=== PATIENT | female | born 1950 | race Caucasian/White ===

== ENCOUNTER 2018-02-22 08:17 | Day surgery (SDC) | payer MEDICARE ==
[~2018-02-22 08:17] MED LIST: ASPI81CH PO; AZIT250 PO; DOCU100 PO; LISI5 PO; LORA1SY PO; Tambocor100 MG PO; ZOLP10 PO
== END 2018-02-22 22:44 ==
LOC: MOI MAM 08:17
PROC: BH40ZZZ Ultrasonography of Right Breast (ICD-10-PCS; principal; 2018-02-22)
DX: C50.412 Malignant neoplasm of upper-outer quadrant of left female breast (principal)
CPT/HCPCS: 19285; 19286; 77065; A4648

== ENCOUNTER 2018-08-21 23:50 | Emergency (ER) | payer MEDICARE ==
[~2018-08-21] VITALS: Ht 165.1 cm; Wt 81.7 kg
[2018-08-22 00:23] LABS: Source, Urine Clean Catch
[2018-08-22 00:25] LABS: Bilirubin, Urine Neg (Neg); Blood, Urine 5+ (Neg); Glucose Qualitative, Urine Neg (Neg); Ketones, Urine 1+ (Neg); Leukocyte Esterase, Urine 2+ (Neg); Nitrite, Urine Pos (Neg); Protein, Urine 3+ (Neg); Specific Gravity, Urine 1.025 (1.003-1.022); Urobilinogen, Urine NORM (Normal)
[2018-08-22 00:27] LABS: Color, Urine Yellow (P-Yellow)
[2018-08-22 00:28] LABS: Appearance, Urine Hazy (Clear)
[2018-08-22 00:39] LABS: Bacteria Many /hpf; Red Blood Cells, Urine TNTC /hpf (0-2); Squamous Epithelial Cells Not Seen /hpf (Few)
[2018-08-22] MEDS ORDERED: Flomax0.4 MG PO (01:56)
[2018-08-22] MEDS ORDERED: Norco 5-325 Ta1 EACH PO (01:56)
[2018-08-22] MEDS ORDERED: Zofran4 MG PO (01:56)
== END 2018-08-22 02:19 | disposition home or self-care (01) ==
LOC: ER 23:50
PROVIDERS: Emergency Medicine
DX: N13.2 Hydronephrosis with renal and ureteral calculous obstruction (principal); I10 Essential (primary) hypertension; Z88.5 Allergy status to narcotic agent; Z88.8 Allergy status to other drugs, medicaments and biological substances; Z91.041 Radiographic dye allergy status; Z86.711 Personal history of pulmonary embolism; Z79.899 Other long term (current) drug therapy; Z79.82 Long term (current) use of aspirin; Z86.718 Personal history of other venous thrombosis and embolism; Z87.891 Personal history of nicotine dependence
CPT/HCPCS: 74176; 81001; 87077; 87086; 87186; 96374; 96375; 99284-25; J2405; J3010

== ENCOUNTER 2018-08-25 04:50 | Inpatient (IN) | payer MEDICARE ==
[~2018-08-25] VITALS: Ht 165.1 cm; Wt 81.9 kg
[~2018-08-25 04:50] MED LIST changes: +Flomax0.4 MG PO; +Norco 5-325 Ta1 EACH PO; +Zofran4 MG PO
[2018-08-25 05:42] LABS: Hematocrit 39.9 % (33.0-51.0); Hemoglobin 13.9 g/dL (11.5-16.0); Mean Corpuscular HGB 32.6 pg (26.0-34.0); Mean Corpuscular HGB Conc 34.8 g/dL (31.5-36.5); Mean Corpuscular Volume 94 fL (80-100); Mean Platelet Volume 11.9 fL (9.1-12.4); Platelet Count 127 K/mm3 (150-400); RDW Coefficient Variation 13.6 % (11.7-14.2); Red Blood Cell Count 4.26 M/mm3 (3.80-5.20); White Blood Cell Count 22.99 K/mm3 (4.00-11.30)
[2018-08-25 05:47] LABS: Source, Urine Catheter
[2018-08-25 05:49] LABS: Bilirubin, Urine Neg (Neg); Blood, Urine 5+ (Neg); Glucose Qualitative, Urine Neg (Neg); Ketones, Urine 2+ (Neg); Leukocyte Esterase, Urine 3+ (Neg); Nitrite, Urine Pos (Neg); Protein, Urine 3+ (Neg); Urobilinogen, Urine 1+ (Normal)
[2018-08-25 06:01] LABS: Alanine Aminotransfer (ALT/SGP 135 U/L (12-78); Albumin, Blood 2.8 g/dL (3.4-5.0); Albumin/Globulin Ratio 0.6 (0.8-1.8); Alk Phos 351 U/L (50-136); Anion Gap 16 mmol/L (6-16); Aspartate Aminotrans (AST/SGOT 61 U/L (12-37); Bilirubin, Total 0.9 mg/dL (0.1-1.0); Blood Urea Nitrogen 48 mg/dL (8-24); CO2, Blood 16 mmol/L (21-32); Calcium, Blood 7.7 mg/dL (8.5-10.1); Chloride, Blood 104 mmol/L (98-108); Globulin, Blood 4.7 g/dL (2.2-4.0); Glomerular Filtration Rate 26 (60-); Glucose, Blood 121 mg/dL (70-99); Potassium, Blood 3.6 mmol/L (3.5-5.5); Sodium, Blood 136 mmol/L (136-145); Total Protein, Blood 7.5 g/dL (6.4-8.2); Troponin I <0.015 ng/mL (0.000-0.040)
[2018-08-25 06:15] LABS: Appearance, Urine Cloudy (Clear); Color, Urine Yellow (P-Yellow)
[2018-08-25 06:22] LABS: Red Blood Cells, Urine 25-50 /hpf (0-2); White Blood Cells, Urine 50-100 /hpf (0-5)
[2018-08-25 06:23] LABS: Bacteria Many /hpf; Squamous Epithelial Cells Mod /hpf (Few)
[2018-08-25 06:40] LABS: BAND PERCENT MAN 6 % (0-8); BASOPHILS PERCENT MAN 0 % (0-2); EOSINOPHILS PERCENT MAN 0 % (0-6); LYMPHOCYTES ABSOLUTE MAN 0.45 K/mm3 (0.84-5.20); LYMPHOCYTES PERCENT MAN 2 % (21-46); METAMYELOCYTE ABSOLUTE MAN 0.22 K/mm3 (0.00-0.00); METAMYELOCYTE PERCENT MAN 1 % (0-0); MONOCYTES ABSOLUTE MAN 0.22 K/mm3 (0.16-1.47); MONOCYTES PERCENT MAN 1 % (4-13); NEUTROPHILS ABSOLUTE MAN 22.07 K/mm3 (1.96-9.15); SEG NEUTROPHILS PERCENT MAN 90 % (41-73); TOTAL CELLS COUNTED 100
[2018-08-26 05:11] LABS: BASOPHILS ABSOLUTE AUTO 0.03 K/mm3 (0.00-0.23); BASOPHILS PERCENT AUTO 0 % (0-2); EOSINOPHILS ABSOLUTE AUTO 0.01 K/mm3 (0.00-0.68); EOSINOPHILS PERCENT AUTO 0 % (0-6); Hematocrit 31.7 % (33.0-51.0); Hemoglobin 10.5 g/dL (11.5-16.0); IMMATURE GRAN ABSOLUTE AUTO 0.05 K/mm3 (0.00-0.10); IMMATURE GRAN PERCENT AUTO 0 % (0-1); LYMPHOCYTES ABSOLUTE AUTO 0.61 K/mm3 (0.84-5.20); LYMPHOCYTES PERCENT AUTO 5 % (21-46); MONOCYTES ABSOLUTE AUTO 0.72 K/mm3 (0.16-1.47); MONOCYTES PERCENT AUTO 6 % (4-13); Mean Corpuscular HGB 31.7 pg (26.0-34.0); Mean Corpuscular HGB Conc 33.1 g/dL (31.5-36.5); Mean Corpuscular Volume 96 fL (80-100); Mean Platelet Volume 12.2 fL (9.1-12.4); NEUTROPHILS ABSOLUTE AUTO 10.37 K/mm3 (1.96-9.15); NEUTROPHILS PERCENT AUTO 88 % (41-73); Platelet Count 103 K/mm3 (150-400); RDW Coefficient Variation 14.1 % (11.7-14.2); RDW Standard Deviation 49.7 fL (35.1-46.3); Red Blood Cell Count 3.31 M/mm3 (3.80-5.20); White Blood Cell Count 11.79 K/mm3 (4.00-11.30)
[2018-08-26 05:27] LABS: Bun/Creatinine Ratio 23.8 (12.0-20.0); Calcium, Blood 6.9 mg/dL (8.5-10.1); Creatinine, Blood 1.43 mg/dL (0.40-1.00); Potassium, Blood 3.7 mmol/L (3.5-5.5)
[2018-08-27] MEDS ORDERED: LEVO750 PO (15:09)
== END 2018-08-27 16:36 | disposition home or self-care (01) | DRG 872 ==
LOC: ER 04:50 → ICUW 06:48 → MEDS 20:21
PROVIDERS: Emergency Medicine; Student in an Organized Health Care Education/Training Program
DX: A41.89 Other specified sepsis (principal); N39.0 Urinary tract infection, site not specified; N17.9 Acute kidney failure, unspecified; R65.20 Severe sepsis without septic shock; B96.1 Klebsiella pneumoniae [K. pneumoniae] as the cause of diseases classified elsewhere; N18.9 Chronic kidney disease, unspecified; I48.91 Unspecified atrial fibrillation; I12.9 Hypertensive chronic kidney disease with stage 1 through stage 4 chronic kidney disease, or unspecified chronic kidney disease; E66.3 Overweight; Z85.3 Personal history of malignant neoplasm of breast; Z87.891 Personal history of nicotine dependence; Z88.5 Allergy status to narcotic agent; Z88.8 Allergy status to other drugs, medicaments and biological substances; Z79.82 Long term (current) use of aspirin; Z79.899 Other long term (current) drug therapy; Z86.718 Personal history of other venous thrombosis and embolism
CPT/HCPCS: 36415; 71260; 74176; 80048; 80053; 81001; 83605; 83690; 84484; 85025; 85379; 87040; 87077; 87086; 87186; 93005; 93010; 96361; 96365; 96375; 96376; 99285-25; J0696; J1200; J1650; J2270; J2405; J2550; J2930; J3010; J7030; J7120; P9612; Q9967